=== PATIENT | male | born 1960 | race Two or more races ===

== ENCOUNTER 2025-01-24 11:50 | Day surgery (SDC) | payer MEDICARE, MEDICAID, SELFPAY ==
[2025-01-24] VITALS (9 sets, daily range): BP systolic 127–150; BP diastolic 69–86; PULSE 66–77; RESP 8–21; TEMP 36.6–37.1; O2SAT 96–100; BMI 24.3
[2025-01-24] MEDS: fentaNYL CIT INJ 50 mCg/ML AMP 2ML (ASD USE ONLY) IV (13:49)
[2025-01-24] MEDS: RINGERS LACTATED 1000 ML 1,000 ML 100 ML IV (13:49)
[2025-01-24] MEDS: MIDAZOLAM INJ 1 MG/ML VIAL 2 ML (ASD USE ONLY) 2 MG IV (14:02)
--- NOTE | 2025-01-24 14:17 | SUR.PHASEII ---
1417: [place] from [place] via [facility]. received report from Cathleen BAIRES. pt awake and alert. no s/s of resp. distress or discomfort. no s/s of pain or discomfort.
--- NOTE | 2025-01-24 14:31 | SUR.PHASEII ---
1431: pt able to drink juice without any issues.
--- NOTE | 2025-01-24 14:42 | SUR.PHASEII ---
1442: pt ambulate to bathroom without any issues.
--- NOTE | 2025-01-24 14:49 | SUR.PHASEII ---
1449: discharge instructions given to daughter and pt in [place] by seismic interpreter DEQUAN Pham, all questions were answered. all belongings brought given back to patient.
--- NOTE | 2025-01-24 14:53 | SUR.PHASEII ---
1453: pt discharge to home via wheelchair with daughter and grandson on the side. pt alert and oriented to name, place and time. no s/s of resp distress or discomfort. denies any pain or discomfort. while patient using bathroom, heard him passing gas.
== END 2025-01-24 14:53 | disposition home or self-care (01) ==
PROVIDERS: PCP Nurse Practitioner Primary Care; Referring Provider Surgery; Visit Provider Surgery
PROC: 0DBE8ZX Excision of Large Intestine, Via Natural or Artificial Opening Endoscopic, Diagnostic (ICD-10-PCS; CPT 45380; principal; 2025-01-24 13:45)
DX: Z12.11 Encounter for screening for malignant neoplasm of colon (principal); K57.30 Diverticulosis of large intestine without perforation or abscess without bleeding; E11.9 Type 2 diabetes mellitus without complications; I10 Essential (primary) hypertension; Z79.84 Long term (current) use of oral hypoglycemic drugs; Z79.899 Other long term (current) drug therapy
CPT/HCPCS: G0121; J2250; J3010; J7120